=== PATIENT | male | born 1980 | race Two or more races ===

== ENCOUNTER → 2024-04-21 | Outpatient (CLI) | payer BC, SELFPAY ==
[2024-04-21 08:11] LABS: Collection Type, Urine Clean Catch; Squamous Epithelial Cell,Urine 0 /hpf (0-5)
[2024-04-21 08:36] LABS: Bilirubin,Urine Negative (Negative); Blood,Urine Negative (Negative); Clarity,Urine Clear (Clear/Hazy); Color,Urine Lt-Yellow (Lt Yel-Yel); Glucose, Urine Negative (Negative); Ketones,Urine Negative (Negative); Leukocyte Esterase,Urine Negative (Negative); Nitrite,Urine Negative (Negative); PH,Urine 6.5 (5.0-7.0); Protein,Urine Negative (Neg - Trace); RBC,Urine 1 /hpf (0-3); Specific Gravity,Urine 1.022 (1.001-1.035); Urobilinogen,Urine Negative mg/dL (0.0-1.0); WBC,Urine < 1 /hpf (0-5)
[2024-04-21 08:36] LABS: Basophils % (Auto) 0 % (0-2.5); Eosinophils # (Auto) 0.1 Thou/mm3 (0.0-0.5); Eosinophils % (Auto) 3 % (0-10); Hematocrit 42.4 % (41.0-53.0); Hemoglobin 15.5 g/dL (13.5-16.0); Immature Granulocytes % (Auto) 0 % (0-0); Immature Granulocytes Auto 0.01 Thou/mm3 (0.00-0.00); Lymphocytes # (Auto) 1.7 Thou/mm3 (1.0-4.8); Lymphocytes % (Auto) 30 % (10-50); Mean Corpuscular HGB Conc 36.6 g/dl (31.0-37.0); Mean Corpuscular Hemoglobin 33.3 pg (25.0-35.0); Mean Corpuscular Volume 91 fL (80-100); Monocytes # (Auto) 0.4 Thou/mm3 (0.0-0.8); Monocytes % (Auto) 7 % (0-12); Neutrophils # (Auto) 3.3 Thou/mm3 (1.8-7.7); Neutrophils % (Auto) 60 % (37-80); Nucleated Red Blood Cell % 0 /100 WBC (0); Platelet Count 286 Thou/mm3 (140-440); RDW Standard Deviation 39.6 fL (35.1-43.9); Red Blood Count 4.66 Miln/mm3 (4.50-5.90); White Blood Count 5.6 Thou/mm3 (3.8-10.6)
[2024-04-21 08:45] LABS: Glucose Estimated Average 100 mg/dL (80-131); Hemoglobin A1C 5.1 % Hgb (4.8-6.0)
[2024-04-21 08:48] LABS: Prostate Specific Antigen 1.11 ng/mL (0-4.00)
[2024-04-21 08:54] LABS: Vitamin B12 858 pg/mL (211-911); Vitamin D 25 Hydroxy Total 33.8 ng/mL (7.3-40.2)
[2024-04-21 09:04] LABS: Alanine Aminotransferase 41 U/L (10-49); Albumin/Globulin Ratio 1.9 (1.2-2.2); Alkaline Phosphatase 89 U/L (46-116); Anion Gap 3 (7-16); Aspartate Amino Transferase 30 U/L (0-34); BUN/Creatinine Ratio 17 Ratio (12-20); Blood Urea Nitrogen 19 mg/dL (9-23); Calcium 9.9 mg/dL (8.3-10.6); Calcium (Corrected) 9.9 mg/dL (8.5-10.1); Cardiac Risk Estimate 4.6 RATIO (4.0-6.7); Chloride 105 mMol/L (98-107); Cholesterol 222 mg/dL (132-200); Creatinine (Component) 1.1 mg/dL (0.6-1.3); Globulin 2.6 gm/dL (2.3-3.5); Glucose 95 mg/dL (74-106); HDL Cholesterol 48 mg/dL (40-60); LDL Cholesterol,Calculated 142 mg/dL (0-130); Osmolality,Calculated 276 (275-295); Potassium 4.1 mMol/L (3.4-5.1); Sodium 137 mMol/L (136-145); Thyroid Stimulating Hormone 3.26 uIU/mL (0.55-4.78); Total Protein 7.6 gm/dL (5.7-8.2); Triglycerides 159 mg/dL (30-150); Uric Acid 6.6 mg/dL (3.7-9.2); eGFR > 60 See Note
[2024-04-27 06:45] LABS: ANA Screen, IFA NEGATIVE (NEGATIVE)
== END | disposition home or self-care (01) ==
PROVIDERS: PCP Internal Medicine; Referring Provider Internal Medicine; Visit Provider Internal Medicine
DX: Z00.00 Encounter for general adult medical examination without abnormal findings (principal)
CPT/HCPCS: 36415; 80053; 80061; 81001; 82306; 82607; 83036; 84153; 84443; 84550; 85025; 86038

== ENCOUNTER → 2024-04-24 | Outpatient (CLI) | payer BC, SELFPAY ==
[2024-04-24 10:44] LABS: Syphilis Nonreactive (Nonreactive)
[2024-04-24 14:50] LABS: Chlamydia trachomatis PCR Negative (Not Detect); Neisseria Gonorrhoeae DNA PCR Negative (Not Detect); Trichomonas Negative (Negative)
[2024-04-29 19:49] LABS: HSV1 IgG Type Specific Ab <0.90 INDEX
[2024-04-30 06:42] LABS: HSV2 IgG Type Specific Ab <0.90 INDEX
== END | disposition home or self-care (01) ==
PROVIDERS: PCP Internal Medicine; Referring Provider Internal Medicine; Visit Provider Internal Medicine
DX: Z11.3 Encounter for screening for infections with a predominantly sexual mode of transmission (principal)
CPT/HCPCS: 36415; 86695; 86696; 86780; 87491; 87591; 87661

== ENCOUNTER → 2024-12-24 | Outpatient (CLI) | payer BC, SELFPAY ==
--- NOTE | 2024-12-24 10:12 | XR_ITS ---
Examination: Testicular sonography complete TECHNIQUE: Grayscale sonographic images testes, assessment arterial inflow venous outflow Doppler spectral analysis carful analysis Date and time: December 24, 2024, testicular sonogram October 08, 2017 small hematoma adjacent to the left epididymis, patient states lump in both testes 7 years. FINDINGS: Right testis 5.1 cm epididymis 16mm Arterial flow testicle. No testicular mass Left testis 4.4 cm epididymis 15 mm Arterial flow testicle No testicular mass Mild bilateral hydroceles IMPRESSION: No testicular torsion or testicular masses
== END | disposition home or self-care (01) ==
PROVIDERS: PCP Internal Medicine; Referring Provider Internal Medicine; Visit Provider Internal Medicine
DX: N50.811 Right testicular pain (principal)
CPT/HCPCS: 76870

== ENCOUNTER → 2024-12-31 | Outpatient (CLI) | payer BC, SELFPAY ==
[2024-12-31 08:22] LABS: Collection Type, Urine Clean Catch; Squamous Epithelial Cell,Urine 0 /hpf (0-5)
[2024-12-31 08:51] LABS: Basophils # (Auto) 0.0 Thou/mm3 (0.0-0.2); Basophils % (Auto) 0 % (0-2.5); Eosinophils # (Auto) 0.1 Thou/mm3 (0.0-0.5); Eosinophils % (Auto) 3 % (0-10); Hematocrit 42.7 % (41.0-53.0); Hemoglobin 15.0 g/dL (13.5-16.0); Immature Granulocytes Auto 0.01 Thou/mm3 (0.00-0.00); Lymphocytes # (Auto) 1.5 Thou/mm3 (1.0-4.8); Lymphocytes % (Auto) 31 % (10-50); Mean Corpuscular HGB Conc 35.1 g/dl (31.0-37.0); Mean Corpuscular Hemoglobin 32.2 pg (25.0-35.0); Mean Corpuscular Volume 92 fL (80-100); Monocytes # (Auto) 0.3 Thou/mm3 (0.0-0.8); Monocytes % (Auto) 7 % (0-12); Neutrophils # (Auto) 2.9 Thou/mm3 (1.8-7.7); Neutrophils % (Auto) 59 % (37-80); Nucleated Red Blood Cell # 0.00 Thou/mm3 (0.00-0.00); Nucleated Red Blood Cell % 0 /100 WBC (0); Platelet Count 242 Thou/mm3 (140-440); RDW Standard Deviation 41.1 fL (35.1-43.9); Red Blood Count 4.66 Miln/mm3 (4.50-5.90); White Blood Count 4.9 Thou/mm3 (3.8-10.6)
[2024-12-31 09:03] LABS: Bilirubin,Urine Negative (Negative); Blood,Urine Negative (Negative); Clarity,Urine Clear (Clear/Hazy); Color,Urine Lt-Yellow (Lt Yel-Yel); Glucose, Urine Negative (Negative); Ketones,Urine Negative (Negative); Leukocyte Esterase,Urine Negative (Negative); Nitrite,Urine Negative (Negative); PH,Urine 6.5 (5.0-7.0); Protein,Urine Negative (Neg - Trace); RBC,Urine 1 /hpf (0-3); Specific Gravity,Urine 1.017 (1.001-1.035); Urobilinogen,Urine Negative mg/dL (0.0-1.0); WBC,Urine < 1 /hpf (0-5)
[2024-12-31 09:05] LABS: Glucose Estimated Average 108 mg/dL (80-131); Hemoglobin A1C 5.4 % Hgb (4.8-6.0); Prostate Specific Antigen 0.96 ng/mL (0-4.00)
[2024-12-31 09:19] LABS: Alanine Aminotransferase 36 U/L (10-49); Albumin, Serum 4.6 gm/dL (3.5-5.0); Albumin/Globulin Ratio 1.8 (1.2-2.2); Alkaline Phosphatase 71 U/L (46-116); Anion Gap 9 (7-16); Aspartate Amino Transferase 28 U/L (0-34); BUN/Creatinine Ratio 13 Ratio (12-20); Bilirubin,Total 0.9 mg/dL (0.3-1.2); Blood Urea Nitrogen 13 mg/dL (9-23); Calcium 10.0 mg/dL (8.3-10.6); Calcium (Corrected) 10.0 mg/dL (8.5-10.1); Carbon Dioxide 27.8 mMol/L (20.0-31.0); Cardiac Risk Estimate 3.7 RATIO (4.0-6.7); Chloride 105 mMol/L (98-107); Cholesterol 179 mg/dL (132-200); Creatinine (Component) 1.0 mg/dL (0.6-1.3); Globulin 2.5 gm/dL (2.3-3.5); Glucose 97 mg/dL (74-106); HDL Cholesterol 48 mg/dL (40-60); LDL Cholesterol,Calculated 114 mg/dL (0-130); Osmolality,Calculated 283 (275-295); Potassium 4.4 mMol/L (3.4-5.1); Sodium 142 mMol/L (136-145); Thyroid Stimulating Hormone 2.59 uIU/mL (0.55-4.78); Total Protein 7.1 gm/dL (5.7-8.2); Triglycerides 87 mg/dL (30-150); Uric Acid 6.0 mg/dL (3.7-9.2); eGFR > 60 See Note
[2024-12-31 09:21] LABS: Carcinoembryonic Antigen 1.4 ng/mL (0.0-5.0); Vitamin B12 922 pg/mL (211-911); Vitamin D 25 Hydroxy Total 29.1 ng/mL (7.3-40.2)
== END | disposition home or self-care (01) ==
LOC: COPL 06:37
PROVIDERS: PCP Internal Medicine; Referring Provider Internal Medicine; Visit Provider Internal Medicine
DX: Z00.00 Encounter for general adult medical examination without abnormal findings (principal)
CPT/HCPCS: 36415; 80053; 80061; 81001; 82306; 82378; 82607; 83036; 84153; 84443; 84550; 85025

== ENCOUNTER 2025-04-01 12:30 | Day surgery (SDC) | payer BC, SELFPAY ==
[2025-03-31 12:58] VITALS: BMI 28.1
[2025-04-01] VITALS (10 sets, daily range): BP systolic 102–162; BP diastolic 55–81; PULSE 44–58; RESP 13–19; TEMP 36.7–36.9; O2SAT 95–100; BMI 28.3
[2025-04-01] MEDS: RINGERS LACTATED 500 ML 500 ML 100 ML IV (14:18)
[2025-04-01] MEDS: fentaNYL CIT INJ 50 mCg/ML AMP 2ML IVP (14:21)
[2025-04-01] MEDS: MIDAZOLAM INJ 1 MG/ML VIAL 2 ML 2 MG IVP (14:33)
== END 2025-04-01 15:40 | disposition home or self-care (01) ==
PROVIDERS: PCP Internal Medicine; Referring Provider Surgery; Visit Provider Surgery
PROC: 0DBE8ZX Excision of Large Intestine, Via Natural or Artificial Opening Endoscopic, Diagnostic (ICD-10-PCS; CPT 45380; principal; 2025-04-01 14:30)
DX: Z12.11 Encounter for screening for malignant neoplasm of colon (principal)
CPT/HCPCS: 45378; A4217; A4649; J1200; J2250; J3010; J7120

== ENCOUNTER → 2025-05-12 | Outpatient (CLI) | payer BC, SELFPAY ==
[2025-05-12 16:20] LABS: Collection Type, Urine Clean Catch; Squamous Epithelial Cell,Urine 0 /hpf (0-5); WBC,Urine 0 /hpf (0-5)
[2025-05-12 17:43] LABS: Bilirubin,Urine Negative (Negative); Blood,Urine Negative (Negative); Clarity,Urine Clear (Clear/Hazy); Color,Urine Lt-Yellow (Lt Yel-Yel); Culture Indicated,Urine Not Indicated; Glucose, Urine Negative (Negative); Ketones,Urine Negative (Negative); Leukocyte Esterase,Urine Negative (Negative); Nitrite,Urine Negative (Negative); PH,Urine 6.0 (5.0-7.0); Protein,Urine Negative (Neg - Trace); RBC,Urine 1 /hpf (0-3); Specific Gravity,Urine 1.018 (1.001-1.035); Urobilinogen,Urine Negative mg/dL (0.0-1.0)
[2025-05-12 18:17] LABS: HIV (1&2) Antibody Rapid Non-Reactive
[2025-05-12 19:34] LABS: Syphilis Nonreactive (Nonreactive)
[2025-05-13 12:29] LABS: Chlamydia trachomatis PCR Negative (Not Detect); Neisseria Gonorrhoeae DNA PCR Negative (Not Detect); Trichomonas Negative (Negative)
[2025-05-15 22:09] LABS: HSV1 IgG Type Specific Ab <0.90 INDEX
[2025-05-17 06:42] LABS: HSV2 IgG Type Specific Ab <0.90 INDEX
== END | disposition home or self-care (01) ==
LOC: COPL 15:53
PROVIDERS: PCP Internal Medicine; Referring Provider Internal Medicine; Visit Provider Internal Medicine
DX: N34.1 Nonspecific urethritis (principal); Z11.3 Encounter for screening for infections with a predominantly sexual mode of transmission
CPT/HCPCS: 36415; 81001; 86695; 86696; 86703; 86780; 87491; 87591; 87661